=== PATIENT | male | born 1990 | race Caucasian/White ===

== ENCOUNTER 2018-12-07 21:14 | Emergency (ER) | payer SELFPAY ==
[2018-12-07 21:17] VITALS: BP 124/90
[2018-12-07] MEDS ORDERED: RIVA20TA PO (21:22)
[2018-12-07] MEDS ORDERED: WARF5TAB23 PO (21:22)
[2018-12-07] MEDS ORDERED: GABA-549 PO (21:22)
--- NOTE | 2018-12-07 21:32 | ER Report ---
History and Physical Time Seen By MD: 21:30 Hx. of Stated Complaint: FELL OFF A PILL OF WOOD ABOUT 5-6FT HPI/ROS Was going in to see the patient and the nurse told me the patient wanted to sign out AMA and he was leaving, so did not see the patient at this time. Patient later changed his mind and signed in again. I was seeing two other patients that had just arrived and by the time I got to his room he had signed out again, so never did see the patient. Allergies: Coded Allergies: diphenhydramine (Verified Allergy, Intermediate, 12/07/18) ketamine (Verified Allergy, Intermediate, 12/07/18) ketorolac (Verified Allergy, Intermediate, 12/07/18) Uncoded Allergies: CONTRAST (Allergy, Intermediate, 12/07/18) Home Meds Reported Medications Gabapentin (GABAPENTIN) 300 Mg Capsule, 300 MG PO TID, CAPSULE 12/07/18 Rivaroxaban 20 Mg (XARELTO 20 MG) 20 Mg Tablet, 20 MG PO, TAB 12/07/18 Warfarin Sodium (WARFARIN SODIUM) 5 Mg Tablet, 10 MG PO QDAY, TAB 12/07/18 Reviewed Nurses Notes: Yes Constitutional Vital Sign - Last 24 Hours 12/07/18 21:17 Temp 98.7 Pulse 92 Resp 26 B/P (MAP) 124/90 Pulse Ox 99 O2 Delivery Room Air Physical Exam AMA x2 Medical Decision Making ED Course/Re-evaluation ED Course AMA x2 Decision to Disposition Date: Dec 08, 2018 Decision to Disposition Time: 22:30 Depart Departure Latest Vital Signs Vital Signs Date Time Temp Pulse Resp B/P (MAP) Pulse Ox O2 Delivery O2 Flow Rate FiO2 12/07/18 21:17 98.7 92 26 124/90 99 Room Air Impression: Primary Impression: Rib pain Condition: Condition Unchanged Disposition: LEFT W/O BEING SEEN BY MICAELA MASSEY MD Dec 07, 2018 21:32
[2018-12-07] MEDS ORDERED: APAP/HYDROCODONE 325/5 TAB PO ONE (21:35)
== END 2018-12-07 23:00 | disposition left against medical advice (07) ==
LOC: ER 21:32
DX: Z02.9 Encounter for administrative examinations, unspecified (principal)

== ENCOUNTER → 2018-12-07 | Outpatient (CLI) | payer SELFPAY ==
[~2018-12-07] MED LIST: GABA-549 PO; RIVA20TA PO; WARF5TAB23 PO
== END ==
LOC: AMB 20:51
PROVIDERS: ATTEND Nurse Practitioner
DX: R07.89 Other chest pain (principal); R06.82 Tachypnea, not elsewhere classified; R11.0 Nausea; W17.89XA Other fall from one level to another, initial encounter; Y93.31 Activity, mountain climbing, rock climbing and wall climbing
CPT/HCPCS: A0425; A0427